=== PATIENT | male | born 1995 ===

== ENCOUNTER 2018-11-15 09:08 | Emergency (ER) | payer SELFPAY ==
[2018-11-15] MEDS ORDERED: BOOSTRIX IM ONE (09:50)
[2018-11-15] MEDS ORDERED: TYLENOL #3 PO ONE (09:50)
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
[2018-11-15 11:44] VITALS: BP 107/60
== END 2018-11-15 11:42 | disposition home or self-care (01) ==
LOC: ED 09:08
DX: S00.12XA Contusion of left eyelid and periocular area, initial encounter (principal); S60.811A Abrasion of right wrist, initial encounter; H11.32 Conjunctival hemorrhage, left eye; K04.7 Periapical abscess without sinus; S00.432A Contusion of left ear, initial encounter; S00.431A Contusion of right ear, initial encounter; Y08.89XA Assault by other specified means, initial encounter; Y93.89 Activity, other specified; Y92.89 Other specified places as the place of occurrence of the external cause; Y99.8 Other external cause status
CPT/HCPCS: 70450; 70486; 90471; 90715